=== PATIENT | female | born 1995 | race Caucasian/White ===

== ENCOUNTER 2018-01-30 07:35 | Emergency (ER) | payer OTHER, BC ==
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
[2018-01-30 07:47] VITALS: BP 109/79; PULSE 104; TEMP 97.7; BMI 24.0
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
[2018-01-30] MEDS ORDERED: IBUPROFEN 400 MG TABLET (FP) PO ONE ×2 (09:11→09:15)
== END 2018-01-30 10:47 | disposition home or self-care (01) ==
LOC: JER 07:35
DX: M79.602 Pain in left arm (principal); V43.52XA Car driver injured in collision with other type car in traffic accident, initial encounter; W22.11XA Striking against or struck by driver side automobile airbag, initial encounter; Y92.414 Local residential or business street as the place of occurrence of the external cause; Y93.89 Activity, other specified; Y99.8 Other external cause status
CPT/HCPCS: 84703; 87086; 99282-25